=== PATIENT | male | born 2000 | race Two or more races ===

== ENCOUNTER 2025-03-14 16:35 | Emergency (ER) | payer OTHER ==
[~2025-03-14] VITALS: Ht 180.3 cm; Wt 86.3 kg
[2025-03-14] MEDS: FLUORESCEIN SOD OPTH TEST STRIP RIGHTEYE ONE ×2 (19:29)
[2025-03-14] MEDS ORDERED: ERY05OO OP (20:09)
--- NOTE | 2025-03-14 20:11 | ED.PDOC ---
Eye-HPI HPI Comments 24-year-old male presents to ER with right eye complaint x1 day. Patient reports that he started experiencing right eye discomfort/foreign body sensation to right eye while he was wearing protective eyewear and grinding metal at work in 1:00 p.m. prior to arrival to ER. Denies any current pain and presents to ER ambulatory on arrival, with steady gait, in no distress. Denies vision changes, skin changes, eye drainage, use of contacts/glasses or any further symptoms/complaints Chief Complaint: Eye Problem Time Seen by MD: 18:13 Primary Care Provider: UNKNOWN Reviewed Notes: Nurses Notes, Medications, Allergies Allergies: Coded Allergies: NO KNOWN ALLERGIES (Unverified , 03/14/25) Home Meds Active Scripts Erythromycin (Erythromycin) 5 Mg/Gm Oin, 1 MG OP 6XD for 7 Days, #1 OIN 0 Refills Prov:DINAH REN 03/14/25 Information Source: Patient Mode of Arrival: Ambulatory Past Medical History PAST MEDICAL HISTORY: Denies Surgical History: Denies all surgeries Family History Family History: Unknown Social History Smoker: Non-Smoker Alcohol: Denies ETOH Use Drugs: Denies Drug Use Lives In: Home Constitutional: denies: chills, diaphoresis, fatigue, fever, malaise, sweats, weakness, others EENTM: reports: others (As stated in HPI) Respiratory: denies: cough, hemoptysis, orthopnea, SOB at rest, shortness of breath, SOB with excertion, stridor, wheezing, others Cardiovascular: denies: chest pain, dizzy spells, diaphoresis, Dyspnea on exertion, edema, irregular heart beat, left arm pain, lightheadedness, palpitations, PND, syncope, others Gastrointestinal: denies: abdomen distended, abdominal pain, blood streaked bowels, constipated, diarrhea, dysphagia, difficulty swallowing, hematemesis, melena, nausea, poor appetite, poor fluid intake, rectal bleeding, rectal pain, vomiting, others Genitourinary: denies: burning, dysuria, flank pain, frequency, hematuria, incontinence, penile discharge, penile sore, pain, testicle pain, testicle swell ing, urgency, others Neurological: denies: dizziness, fainting, headache, left sided numbness, left sided weakness, numbness, paresthesia, pre-existing deficit, right sided numbness, right sided weakness, seizure, speech problems, tingling, tremors, weakness, others Musculoskeletal: denies: back pain, gout, joint pain, joint swelling, muscle pain, muscle stiffness, neck pain, others Integumetry: denies: bruises, change in color, change in hair/nails, dryness, laceration, lesions, lumps, rash, wounds, others Allergic/Immunocompromised: denies: Difficulty Healing, Frequent Infections, Hives, Itching, others Hematologic/Lymphatic: denies: anemia, blood clots, easy bleeding, easy bruising, swollen glands, others Endocrine: denies: excessive hunger, excessive sweating, excessive thirst, excessive urination, flushing, intolerance to cold, intolerance to heat, unexplained weight gain, unexplained weight loss, others Psychiatric: denies: anxiety, bipolar disorder, depression, hopeless, panic disorder, schizophrenia, sleepless, suicidal, others Physical Exam General Appearance: No Apparent Distress HEENT: PERRL/EOMI, Pharynx Normal, TMs Normal, Other (Wood's lamp examination right eye- minimal subconjunctival injection noted, no foreign body/corneal abrasion noted. No drainage noted from right eye. No skin changes to right upper/lower eyelid noted.) Neck: Full Range of Motion, Non-Tender, Normal Respiratory: Chest Non-Tender, Lungs Clear, No Accessory Muscle Use, No Respiratory Distress, Normal Breath Sounds Cardiovascular: No Murmur, No Gallop, Regular Rate/Rhythm Breast Exam: Deferred Gastrointestinal: NOT DONE Genitalia: Deferred Pelvic: Deferred Rectal: Deferred Extremities: Normal capillary refill, Normal range of motion Neurologic: Alert, No Motor Deficits, Normal Affect, Normal Mood, No Sensory Deficits Cerebellar Function: Normal Reflexes: Normal Skin: Dry, Normal Color, Warm Peripheral Pulses: 2+ Radial (R), 2+ Radial (L), 2+ Brachial (R), 2+ Brachial (L) Lymphatic: No Adenopathy Was a procedure done? Was a procedure done?: No Sedation Sedation?: No EENT DIFF Eye: Corneal Abrasion, Corneal Ulceration, Foreign Body-Intraocular, Orbital Cellulits, Periorbital Cellulits X-Ray, Labs, Meds, VS Vital Signs Date Time Temp Pulse Resp B/P (MAP) Pulse Ox O2 Delivery O2 Flow Rate FiO2 03/14/25 20:14 97.8 72 148 (100) 99 97.8 03/14/25 20:14 Room Air* 0 21 03/14/25 16:36 97.8 72 148/ 99 97.8 Current Medications Medications (Trade) Dose Ordered Sig/Mansoor Route Start Time Stop Time Status Last Admin Fluorescein Sodium (Ful-Yancy) 1 mg ONCE ONCE RIGHTEYE 03/14/25 18:30 03/14/25 18:31 DC 03/14/25 19:29 Fluorescein Sodium (Ful-Yancy) 1 mg ONCE ONCE RIGHTEYE 03/14/25 18:30 03/14/25 18:31 DC 03/14/25 19:29 Patient had improvement in symptoms and in no distress prior to discharge Andre byrd paperwork filled out Advised to follow up with PCP and sadas rochelle PCP in 1-2 days Patient verbalized understanding and agreeable with current plan of care Advised to return to ER immediately if symptoms worsen Time of 1ST Reevaluation: 19:44 Reevaluation 1ST: N/A Patient Education/Counseling: Diagnosis, Treatment, Prognosis, Need For Follow Up Family Education/Counseling: No Family Present SEPSIS Sepsis Screen Date sepsis recognized/suspect: Mar 14, 2025 Time Sepsis recognized/suspect: 1637 Recent Procedure: No On Antibiotic Therapy: No Respiratory Rate >20: No Heart Rate >90: No Temp<36 C (96.8 F) or >38.3 C: No SBP <90 or MAP <65 mmHG: No New Acute Mental Status Change: No Is the patient on CPAP, BIPAP,: No Vital Signs Date Time Temp Pulse Resp B/P (MAP) Pulse Ox O2 Delivery O2 Flow Rate FiO2 03/14/25 20:14 97.8 72 148 (100) 99 97.8 03/14/25 20:14 Room Air* 0 21 03/14/25 16:36 97.8 72 148/ 99 97.8 Medications Medications Dose Ordered Sig/Mansoor Route Start Time Stop Time Status Last Admin Dose Admin Fluorescein Sodium 1 mg ONCE ONCE RIGHTEYE 03/14/25 18:30 03/14/25 18:31 DC 03/14/25 19:29 Fluorescein Sodium 1 mg ONCE ONCE RIGHTEYE 03/14/25 18:30 03/14/25 18:31 DC 03/14/25 19:29 Departure 1 Departure Time of Disposition: 20:08 Impression: Primary Impression: Foreign body sensation, right eye Disposition: 01 HOME / SELF CARE / HOMELESS Condition: Stable e-Prescriptions Erythromycin (Erythromycin) 5 Mg/Gm Oin 1 MG OP 6XD for 7 Days, #1 OIN 0 Refills Prov: DNIAH REN 03/14/25 Discharged With: Self Critical Care Note Critical Care Time?: No Stability Stability form required: No Heart Score Heart Score: Heart Score Response (Comments) Value History N/A 0 EKG N/A 0 Age N/A 0 Risk Factors N/A 0 Troponin N/A 0 Total 0 DINAH REN Mar 14, 2025 20:11
[2025-03-14 20:14] VITALS: BP 148/77; PULSE 72; RESP 20; TEMP 97.8; O2SAT 99
== END 2025-03-14 20:40 | disposition home or self-care (01) ==
LOC: ER 16:35
DX: H57.8A1 Foreign body sensation, right eye (principal); X58.XXXA Exposure to other specified factors, initial encounter; Y93.89 Activity, other specified; Y92.89 Other specified places as the place of occurrence of the external cause; Y99.8 Other external cause status